=== PATIENT | female | born 1950 | race Caucasian/White ===

== ENCOUNTER 2024-02-05 07:37 | Day surgery (SDC) | payer MEDICARE, SELFPAY ==
[2024-02-03 16:03] VITALS: BMI 24.0
--- NOTE | 2024-02-04 09:41 | P.CONAN_ITS ---
Documented by User: Estrella Solis NP 02/04/24 09:41 HPI - Anesthesia Eval Consult details Narrative: 74yo F for Colonoscopy Pacer in situ PMFSH Past Medical History Medical History (Updated 02/03/24 @ 16:15 by Kira Del Real, ANDREWS) Anxiety Environmental allergies Hx of cardiac pacemaker Complete heart block Vitamin D deficiency Back pain Asthma Elevated cholesterol HTN (hypertension) Diabetes Surgical History Surgical History (Updated 02/03/24 @ 16:02 by Kira Del Real RN) Status post placement of cardiac pacemaker Hx of tonsillectomy Hx of arthroscopy of knee History of partial hysterectomy Hx of appendectomy Hx of colonoscopy Social History Social History (Updated 02/03/24 @ 16:03 by Kira Del Real RN) Household Members: Spouse Housing: House Are you a primary health care attorney to a significant other at home: No Do you presently have visiting nurse or other home services: No Patient Tobacco Use Status: Former Tobacco user Quit Date: 1994 Tobacco use type: Cigarette Use of substances other than those prescribed or required for medical reasons: Yes Substance Use Type Other:: edibles Substance Use Frequency: Occasionally Have you been hit, kicked, punched, or otherwise hurt by someone within the past year? If so, by whom?: No Are you DNR?: No Advance Directives: No Advance Directives Information Provided: Yes Advance Directives on File: No Recently lost weight without trying: No Meds Allergies Allergy/AdvReac Type Severity Reaction Status Date / Time codeine Allergy Severe Hives Verified 02/03/24 16:08 Iodinated Contrast Media Allergy Severe Anaphylaxis Verified 02/03/24 16:08 [IV Contrast Dye] meperidine [From Demerol] Allergy Severe Hives Verified 02/03/24 16:08 Penicillins Allergy Severe Hives Verified 02/03/24 16:08 pneumococcal vaccine Allergy Severe systemic Verified 02/03/24 16:08 hives nabumetone [From Relafen] Allergy Intermediate Hives Verified 02/03/24 16:08 Home Medications ?Medication ?Instructions ?Recorded ?Confirmed ?Last Taken ?Type Advair Diskus 02/03/24 Unknown History Zyrtec 10 mg PO DAILY 02/03/24 02/03/24 Unknown History albuterol sulfate 0.63 mg/3 mL 0.63 mg inhalation Q4-6H PRN 02/03/24 02/03/24 Unknown History solution for nebulization Shortness Of Breath Or Wheezing albuterol sulfate 90 mcg/actuation 2 puff inhalation Q4-6H PRN 02/03/24 02/03/24 Unknown History aerosol inhaler (ProAir HFA) Shortness Of Breath Or Wheezing atorvastatin 20 mg tablet 20 mg PO BEDTIME 02/03/24 02/03/24 Unknown History cholecalciferol (vitamin D3) 25 75 mcg PO DAILY 02/03/24 02/03/24 Unknown History mcg (1,000 unit) chewable tablet (Vitamin D3) metformin 750 mg tablet,extended 750 mg PO BID 02/03/24 02/03/24 Unknown History release 24 hr tirzepatide 10 mg/0.5 mL 10 mg subcut QWEEK 02/03/24 02/03/24 Unknown History subcutaneous pen injector (Mounjaro) Exam Height,Weight and Vital Signs: Height 5 ft 7 in Weight 69.4 kg Documented by User: Brad Bertrand MD 02/05/24 08:14 [facility] Past Medical History Medical History (Updated 02/03/24 @ 16:15 by Kira Del Real RN) Anxiety Environmental allergies Hx of cardiac pacemaker Complete heart block Vitamin D deficiency Back pain Asthma Elevated cholesterol HTN (hypertension) Diabetes Family History Family history of problems with anesthesia: No Surgical History Surgical History (Updated 02/03/24 @ 16:02 by Kira Del Real, ANDREWS) Status post placement of cardiac pacemaker Hx of tonsillectomy Hx of arthroscopy of knee History of partial hysterectomy Hx of appendectomy Hx of colonoscopy History of Problems with Anesthesia: No Social History Social History (Updated 02/03/24 @ 16:03 by Kira Del Real RN) Household Members: Spouse Housing: House Are you a primary health care attorney to a significant other at home: No Do you presently have visiting nurse or other home services: No Patient Tobacco Use Status: Former Tobacco user Quit Date: 1994 Tobacco use type: Cigarette Use of substances other than those prescribed or required for medical reasons: Yes Substance Use Type Other:: edibles Substance Use Frequency: Occasionally Have you been hit, kicked, punched, or otherwise hurt by someone within the past year? If so, by whom?: No Are you DNR?: No Advance Directives: No Advance Directives Information Provided: Yes Advance Directives on File: No Recently lost weight without trying: No Meds Allergies Allergy/AdvReac Type Severity Reaction Status Date / Time codeine Allergy Severe Hives Verified 02/03/24 16:08 Iodinated Contrast Media Allergy Severe Anaphylaxis Verified 02/03/24 16:08 [IV Contrast Dye] meperidine [From Demerol] Allergy Severe Hives Verified 02/03/24 16:08 Penicillins Allergy Severe Hives Verified 02/03/24 16:08 pneumococcal vaccine Allergy Severe systemic Verified 02/03/24 16:08 hives nabumetone [From Relafen] Allergy Intermediate Hives Verified 02/03/24 16:08 Home Medications ?Medication ?Instructions ?Recorded ?Confirmed ?Last Taken ?Type Advair Diskus 02/03/24 Unknown History Zyrtec 10 mg PO DAILY 02/03/24 02/03/24 Unknown History albuterol sulfate 0.63 mg/3 mL 0.63 mg inhalation Q4-6H PRN 02/03/24 02/03/24 Unknown History solution for nebulization Shortness Of Breath Or Wheezing albuterol sulfate 90 mcg/actuation 2 puff inhalation Q4-6H PRN 02/03/24 02/03/24 Unknown History aerosol inhaler (ProAir HFA) Shortness Of Breath Or Wheezing atorvastatin 20 mg tablet 20 mg PO BEDTIME 02/03/24 02/03/24 Unknown History cholecalciferol (vitamin D3) 25 75 mcg PO DAILY 02/03/24 02/03/24 Unknown History mcg (1,000 unit) chewable tablet (Vitamin D3) metformin 750 mg tablet,extended 750 mg PO BID 02/03/24 02/03/24 Unknown History release 24 hr tirzepatide 10 mg/0.5 mL 10 mg subcut QWEEK 02/03/24 02/03/24 Unknown History subcutaneous pen injector (Tiana) Exam Airway Mallampati Class: II TM Dist: >3cm Neck ROM: Full Loose/Missing/Broken Teeth: No Heart: paced rrr Lungs: cta Assessment and Plan Assessment Anesthesia Assessment: Anesthesia Plan Discussed and Chart Reviewed Final Anesthetic Review Family History of Problems with Anesthesia: No History of Problems with Anesthesia: No NPO: Yes ASA Class: III Final Preanesthetic Review: No Changes in Pt Med Stat, Meds/Allgs Chart Reviewed, Consent Obtained/Reviewed and Anes Risks/Benef Reviewed Patient Risk: Intermediate Procedure Risk: Intermediate Anesthetic Plan Anesthetic Plan: MAC: Disposition: Standard PACU
[2024-02-05 08:15] VITALS: BMI 24.8
[2024-02-05 08:28] VITALS: BP 167/86; PULSE 97; RESP 16; TEMP 36.3; O2SAT 97
[2024-02-05] MEDS: Lactated Ringers 1,000 ML 80 ML IVCONT (08:38)
--- NOTE | 2024-02-05 08:59 | MHC.SHP ---
Pre-Procedural Eval Section A - 24 Hr Update-Section A only Date of Service: 02/05/24 Section B - Complete if H&P > 30 days Chief Complaint: screening Details of Present Illness: SEE h&p NO CHANGES Relevant Family History (Specify if Yes): No Relevant Social History: None Present Medications: see Short Stay Collaborative assessment Medical History: No relevant PMH History of Previous Operations: No relevant previous surgery Allergies: Allergies Allergy/AdvReac Type Severity Reaction Status Date / Time codeine Allergy Severe Hives Verified 02/03/24 16:08 Iodinated Contrast Media Allergy Severe Anaphylaxis Verified 02/03/24 16:08 [IV Contrast Dye] meperidine [From Demerol] Allergy Severe Hives Verified 02/03/24 16:08 Penicillins Allergy Severe Hives Verified 02/03/24 16:08 pneumococcal vaccine Allergy Severe systemic Verified 02/03/24 16:08 hives nabumetone [From Relafen] Allergy Intermediate Hives Verified 02/03/24 16:08 Review of Systems Sugical H&P ROS: Negative: Constitution, Cardiovascular, Respiratory, Neurological, Psychiatric, Hem-Onc, Allergic/Immunologic, Gastrointestinal, Genitourinary, Musculoskeletal, Integumentary, Endocrine and Eyes/Ears/Nose/Throat Exam Surgical H&P Exam: Normal: HEENT, Normal: Heart, Normal: Lungs, Normal: Extremities, Normal: Abdomen, Normal: Skin and Normal: Neurological Plan Diagnosis/Plan: Unchanged I have reviewed the history and physical and performed a pertinent physical examination on my patient. No changes have occurred unless specified. Time Spent With Patient Time: Total time managing care of this patient today ____ minutes.
[2024-02-05 09:35] VITALS: BP 109/69; PULSE 94; RESP 17; TEMP 36.3; O2SAT 97
[2024-02-05 09:50] VITALS: BP 136/70; PULSE 97; RESP 18; TEMP 36.1; O2SAT 97
--- NOTE | 2024-02-05 10:50 | OP_ITS ---
DATE OF SERVICE: 02/05/2024 SURGEON: Jamal Kaur MD INDICATIONS: Colon cancer screening. PREOPERATIVE DIAGNOSIS: POSTOPERATIVE DIAGNOSIS: PROCEDURE PERFORMED: Colonoscopy to the terminal ileum. ESTIMATED BLOOD LOSS: COMPLICATIONS: ANESTHESIA: Monitored anesthesia care. ASSISTANTS: SPECIMENS: DESCRIPTION OF PROCEDURE: A history and physical was performed. The risks and benefits of the procedure were explained to the patient, and informed consent was obtained. The patient was placed in the left lateral decubitus position. A digital rectal exam was performed and was found to be normal. The Olympus pediatric video colonoscope was introduced into the rectum and advanced to the cecum. The cecum was identified by transillumination, palpation, and identification of ileocecal valve. Examination was performed. The scope was removed. She tolerated the procedure well and was returned to the recovery area in stable condition. FINDINGS: The terminal ileum was examined and appeared normal. The visualized colonic mucosa was normal. The quality of the prep was good. There was some stool coating the mucosa mainly in the right colon and proximal transverse colon. This was washed and suctioned. No polyps were identified. There was mild sigmoid diverticulosis. Retroflexed examination showed some hypertrophic anal papillae. IMPRESSION: Normal colonoscopy. RECOMMENDATION: 1. Follow up as needed. 2. Repeat colonoscopy is recommended in 10 years for average risk individuals. MD TONY Kaur/JANIA / [id number]
== END 2024-02-05 10:28 | disposition home or self-care (01) ==
PROVIDERS: PCP Internal Medicine; Visit Provider Internal Medicine Gastroenterology
PROC: 0DJD8ZZ Inspection of Lower Intestinal Tract, Via Natural or Artificial Opening Endoscopic (ICD-10-PCS; CPT 45378; principal; 2024-02-05 09:50)
DX: Z12.11 Encounter for screening for malignant neoplasm of colon (principal); Z86.010 Personal history of colon polyps; K57.30 Diverticulosis of large intestine without perforation or abscess without bleeding; K62.89 Other specified diseases of anus and rectum; I10 Essential (primary) hypertension; I44.2 Atrioventricular block, complete; Z95.0 Presence of cardiac pacemaker; E78.5 Hyperlipidemia, unspecified; J45.909 Unspecified asthma, uncomplicated; E11.9 Type 2 diabetes mellitus without complications; Z79.51 Long term (current) use of inhaled steroids; Z79.84 Long term (current) use of oral hypoglycemic drugs; Z79.85 Long-term (current) use of injectable non-insulin antidiabetic drugs; Z79.899 Other long term (current) drug therapy; Z88.0 Allergy status to penicillin; Z88.5 Allergy status to narcotic agent; Z91.041 Radiographic dye allergy status; Z88.7 Allergy status to serum and vaccine; Z87.891 Personal history of nicotine dependence
CPT/HCPCS: G0105; J2704